=== PATIENT | male | born 1960 | race Caucasian/White ===

== ENCOUNTER 2021-03-05 08:57 | Emergency (ER) | payer MEDICAID, SELFPAY ==
[2021-03-05] VITALS (28 sets, daily range): BP systolic 134–161; BP diastolic 87–106; PULSE 89–105; RESP 11–23; TEMP 37.2; O2SAT 93–100
--- NOTE | ~2021-03-05 | CT_ITS ---
EXAMINATION: CT abdomen pelvis wo/w con DATE: 03/05/2021 11:29 INDICATION: Left kidney masses. TECHNIQUE: Computed tomography (CT) of the abdomen and pelvis was performed without and with 100 mL O mnipaque 350 intravenous contrast. Automated exposure control and iterative reconstruction technique were employed. The dose-length product was 1631.10 mGy-cm. COMPARISON: Chest CT 03/05/2021 FINDINGS: The visualized portions of the lung bases demonstrate mild atelectasis. No pleural effusion . The heart size is normal. No pericardial effusion. There is diffuse hepatic steatosis. The gallblad corey, spleen, pancreas, and adrenal glands are normal. There are cysts in the kidneys measuring up to 17 mm on the left. The ureters are normal. There is prominent fat in the inguinal canals that may be small hernias. There is diverticulosis of the colon without evidence of diverticulitis. There are no dilated loops of bowel. The appendix is normal. There are no pathologically enlarged lymph nodes. The re is no free intraperitoneal fluid. There is moderate lumbar spondylosis. IMPRESSION: 1. Benign cysts in the kidneys. 2. Diffuse hepatic steatosis. Reviewed, dictated and finalized at location A.
--- NOTE | ~2021-03-05 | CT_ITS ---
EXAMINATION: CTA chest PE protocol DATE: 03/05/2021 10:19 INDICATION: Shortness of breath. Chest pain. TECHNIQUE: Computed tomography angiography (CTA) of the chest was performed with 100 mL Omnipaque-350 intravenous contrast timed to evaluate the pulmonary arteries. Coronal maximum intensity projection 3D-reconstructions were created by the technologist. Automated exposure control and iterative reconst ruction technique were employed. The dose-length product was 765.34 mGy-cm. COMPARISON: Chest 2 views 03/05/2021 FINDINGS: There is mild emphysema. There is mild scarring at the lung apices. There is mild atelectas is bilaterally. There is mild scarring in paraspinal right lower lobe. No pleural effusion. The heart size is normal. No pericardial effusion. There is no pulmonary embolus. There is diffuse hepatic akash atosis. There are 2 masses in left kidney measuring soft tissue attenuation measuring up to 14 mm. Th ere is a 5 mm cyst in right kidney. There are bridging endplate osteophytes at multiple levels in the spine, consistent with diffuse idiopathic skeletal hyperostosis (DISH). IMPRESSION: 1. No pulmonary embolus. Sensitivity is moderately decreased by motion artifact. 2. Mild emphysema. 3. Two masses in left kidney measuring up to 14 mm, which may be hemorrhagic cysts or less likely vahe plasms. Abdomen CT without and with contrast is recommended. 4. Diffuse hepatic steatosis. Reviewed, dictated and finalized at location A. IMPRESSION: 1. No pulmonary embolus. Sensitivity is moderately decreased by motion artifact . 2. Mild emphysema. 3. Two masses in left kidney measuring up to 14 mm, which may be hemorrhagic cy sts or less likely neoplasms. Abdomen CT without and with contrast is recommend ed. 4. Diffuse hepatic steatosis.
--- NOTE | ~2021-03-05 | XR_ITS ---
XR chest 2V 03/05/2021 09:27 Indication: Chest pain Procedure: 2 view chest Comparison: No prior studies for comparison. Findings: Heart size normal. There is atherosclerosis of the aorta. There is a right lower paratrache al nodule measuring 1.8 cm which may represent a prominent azygos vein or lymph node. Consider correl ation with contrast-enhanced CT. No focal pneumonia, edema, pleural effusion or pneumothorax. No acut e osseous abnormality. Impression: 1: Right lower paratracheal nodule measuring 1.8 cm which may represent a prominent azygos vein or ly mph node. Consider correlation with contrast-enhanced CT. Reviewed, dictated and finalized at location B. Impression: 1: Right lower paratracheal nodule measuring 1.8 cm which may represent a promi nent azygos vein or lymph node. Consider correlation with contrast-enhanced CT.
--- NOTE | 2021-03-05 09:12 | ECG_ITS ---
Measurements Intervals [place] Rate: 104 P: 52 MI: 143 QRS: -31 QRSD: 97 T: 69 QT: 341 QTc: 450 Interpretive Statements SINUS TACHYCARDIA LEFT AXIS DEVIATION INCOMPLETE RIGHT BUNDLE BRANCH BLOCK CANNOT RULE OUT SEPTAL INFARCT, AGE INDETERMINATE BORDERLINE ST-T WAVE ABNORMALITY- HIGH LATERAL LEADS BASELINE ARTIFACT- I, II, III, AVR, V1-V6 ABNORMAL ECG Electronically Signed On 03-05-2021 12:07:35 CDT by Sunny العلي D.O.
[2021-03-05] MEDS: ASPIRIN 81 MG CHEWABLE TABLET 324 MG PO (09:31)
[2021-03-05 09:34] LABS: Basophils Absolute Auto 0.1 K/mm3 (0.0-0.1); Basophils Percent Auto 0.4 % (0.2-1.2); Eosinophils Absolute Auto 0.1 K/mm3 (0-0.3); Eosinophils Percent Auto 0.4 % (0-4.4); Hematocrit 43.6 % (42.0-52.0); Hemoglobin 15.4 g/dL (14.0-18.0); Immature Granulocyte Percent A 0.6 % (0-0.5); Lymphocytes Percent Auto 7.5 % (18.3-44.2); Mean Corpuscular HGB Conc 35.3 g/dl (32-36); Mean Corpuscular Hemoglobin 35.9 pg (26-34); Mean Corpuscular Volume 101.6 fl (80-100); Mean Platelet Volume 9.3 fl (7.4-10.4); Monocytes Absolute Auto 1.2 K/mm3 (0.1-0.6); Monocytes Percent Auto 7.7 % (2.6-8.5); Neutrophils Absolute Auto 13.4 K/mm3 (1.3-6.7); Neutrophils Percent Auto 83.4 % (45.5-73.1); Platelet Count Result 257 k/mm3 (150-375); Red Blood Count 4.29 M/mm3 (4.6-6.20); Red Cell Distribution Width 11.9 % (11.5-14.5)
[2021-03-05 09:40] LABS: INR 0.9; Partial Thromboplastin Time 25.8 SECONDS (22.3-36.8); Prothrombin Time 11.8 Seconds (11.1-14.7)
[2021-03-05 09:48] LABS: Anion Gap 12 mmol/L (8-16); Blood Urea Nitrogen 14 mg/dL (9-20); Calcium 9.5 mg/dL (8.4-10.2); Carbon Dioxide 22 mmol/L (22-30); Chloride 103 mmol/L (98-107); Estimated CRCL calculation 88 ml/min; Estimated Glomerular Filt Rate > 60; Glucose 133 mg/dL (65-110); Potassium 3.5 mmol/L (3.4-5.0); Sodium 137 mmol/L (137-145)
[2021-03-05 09:58] LABS: Troponin I < 0.012 ng/mL (0.000-0.034)
--- NOTE | 2021-03-05 11:08 | PC.NURSE ---
Called lab requesting add on of D-Dimer
--- NOTE | 2021-03-05 11:26 | PC.NURSE ---
Pt off floor in radiology
[2021-03-05 12:06] LABS: Add Urine Microscopic? YES; Appearance Urine Clear (Clear); Bilirubin Urine Negative (Negative); Blood Urine Negative (Negative); Color Urine Straw (Yellow); Glucose Urine UA Negative (Negative); Ketones Urine Trace mg/dL (Negative); Leukocyte Esterase Ur Trace LEU/UL (Negative); Nitrate Urine Negative (Negative); Protein Urine Negative (Negative); RBC Urine 0-2 /hpf (0-2); Squamous Epithelial Cell Urine Rare /hpf (Few); Urobilinogen Urine Negative mg/dL (<2.0); WBC Urine 0-3 /hpf
[2021-03-05 12:37] LABS: Specific Grav Ur 1.032 (1.001-1.035)
[2021-03-05 13:00] LABS: D Dimer 0.31 ug/mL (<0.48)
[2021-03-05 13:07] LABS: Troponin I < 0.012 ng/mL (0.000-0.034)
[2021-03-05] MEDS: KETOROLAC 15 MG/ML VIAL (*BKC) IV PUSH (13:38)
--- NOTE | 2021-03-05 15:43 | ED.CHESTPAIN ---
HPI - Chest Pain General Chief Complaint: Chest Pain <Alec Arroyo PA-C - Last Filed: 03/05/21 15:48> Stated Complaint: chest pain <Alec Arroyo PA-C - Last Filed: 03/05/21 15:48> Time Seen by Provider: 03/05/21 09:13 <Alec Arroyo PA-C - Last Filed: 03/05/21 15:48> Source: patient <ARTURO Sanchez Last Filed: 03/05/21 15:48> Mode of arrival: ambulatory <ARTURO Sanchez Last Filed: 03/05/21 15:48> Limitations: no limitations <ARTURO Sanchez Last Filed: 03/05/21 15:48> History of Present Illness HPI narrative: Patient presents with chief complaint of substernal chest pain that radiated to his back that began this morning at around 4 AM after waking to urinate. Patient states that he be a walk his dog this morning and breathing in the cold air. Patient states he has not had any fevers, chills, cough, shortness of breath. He did increase his intake to deep breath pain. Patient reports that he smokes marijuana. He denies any other exertional drug usage. Patient denies history of heart attack or stroke. He denies any neurologic deficits. Patient has not taken anything for alleviate his symptoms. He also reports that he ate pizza for dinner last night. <Alec Arroyo PA-C - Last Filed: 03/05/21 15:48> Related Data Allergies/Adverse Reactions: Allergies Allergy/AdvReac Type Severity Reaction Status Date / Time Penicillins Allergy Unknown Unknown Verified 03/05/21 09:11 <Alec Arroyo PA-C - Last Filed: 03/05/21 15:48> Review of Systems Review of Systems: CONSTITUTIONAL: Denies fever, chills, or sweats. EYES: Denies visual changes, redness, or discharge. ENT: Denies rhinorrhea, congestion, sore throat, or otalgia. CARDIOVASCULAR: Reports chest pain, denies palpitations, or edema. RESPIRATORY: Denies cough or dyspnea. GASTROINTESTINAL: Denies abdominal pain, nausea, vomiting, or diarrhea. GENITOURINARY: Denies dysuria or hematuria. SKIN: Denies rash or itching. MUSCULOSKELETAL: Denies back pain, joint pain, or myalgia. NEUROLOGIC: Denies headache, numbness, dizziness, or weakness. PSYCHIATRIC: Denies anxiety or depression. <Alec Arroyo PA-C - Last Filed: 03/05/21 15:48> PMFSH Past Medical History Medical History: Medical History Alcohol abuse Body mass index 29.0-29.9, adult Essential (primary) hypertension Rash and nonspecific skin eruption Umbilical hernia without obstruction and without gangrene <Alec Arroyo PA-C - Last Filed: 03/05/21 15:48> Surgical History Surgical History: Surgical History History of placement of ear tubes History of tonsillectomy and adenoidectomy <Alec Arroyo PA-C - Last Filed: 03/05/21 15:48> Family History Family History: Family History Other Family history of cardiovascular disease Hypertension <Alec Arroyo PA-C - Last Filed: 03/05/21 15:48> Social History Social History: Social History Smoking status: Former smoker (Quit 19 years ago) Second hand tobacco smoke exposure: No Smoking end date: 05/16/03 Alcohol intake: current Alcohol use details: consumes 12 beers daily Substance use: never Substance use type: does not use Gender identity (if verbalized by the patient): Male <Alec Arroyo PA-C - Last Filed: 03/05/21 15:48> Exam Narrative: GENERAL: Well-appearing, well-nourished, and in no acute distress. Nontoxic in appearance. HEAD: Normocephalic, atraumatic. EYES: PERRLA and EOMI. NECK: Supple. No adenopathy or masses. Range of motion intact CHEST: Nontender to palpation. Clear to auscultation. No respiratory distress. No wheezes rales or rhonchi HEART: Regular rate and rhythm. No murmur heard. Normal pe
== END 2021-03-05 14:56 | disposition home or self-care (01) ==
PROVIDERS: Physician Assistant; Emergency Provider Emergency Medicine
DX: R07.2 Precordial pain (principal); I10 Essential (primary) hypertension; Z87.891 Personal history of nicotine dependence; N28.1 Cyst of kidney, acquired; N28.89 Other specified disorders of kidney and ureter; K76.0 Fatty (change of) liver, not elsewhere classified; J43.9 Emphysema, unspecified; R00.0 Tachycardia, unspecified; I45.10 Unspecified right bundle-branch block; R94.31 Abnormal electrocardiogram [ECG] [EKG]
CPT/HCPCS: 36415; 71046; 71275; 74178; 80048; 81001; 84484; 85025; 85380; 85610; 85730; 93005; 96374; 99284; A9270; J1885; Q9967

== ENCOUNTER 2023-02-22 00:27 | Day surgery (SDC) | payer OTHER, SELFPAY ==
[2023-02-09 14:19] VITALS: BMI 31.6
[2023-02-22 08:10] VITALS: BP 125/90; PULSE 100; RESP 17; TEMP 36.5; O2SAT 98; BMI 29.1
[2023-02-22] MEDS: LACTATED RINGERS 1,000 ML 150 ML IV CONT (08:18)
--- NOTE | 2023-02-22 09:02 | WPDANESEPPF ---
Anes - Initial Pre Proc Eval Procedure: Operation Date: 02/22/23 09:30 Proposed Procedures p Colonoscopy - Juan Magallon MD Date/Time: 02/22/23 09:02 Surgeon: Juan Magallon MD Pre Op Diagnosis: other fecal abnormalities Patient Data Age: 62 Gender: M Height: 1.78 m Weight: 92.1 kg Last Vital Signs Temp 97.7 F 02/22/23 08:10 Pulse 100 02/22/23 08:10 Resp 17 02/22/23 08:10 BP 125/90 02/22/23 08:10 Pulse Ox 98 02/22/23 08:10 O2 Del Method Room Air 02/22/23 08:10 Allergies Allergy/AdvReac Type Severity Reaction Status Date / Time Penicillins Allergy Unknown Unknown Verified 02/22/23 08:08 Home Medications Medication Instructions Recorded Confirmed Type loratadine 10 mg capsule 10 mg PO DAILY 03/23/21 02/22/23 History albuterol sulfate 90 mcg/actuation 1 inh inhalation Q4H PRN shortness 04/26/22 02/22/23 Rx aerosol inhaler of breath or wheezing #8.5 grams hydrochlorothiazide 12.5 mg tablet 12.5 mg PO DAILY #90 tabs 06/21/22 02/22/23 Rx lisinopril 10 mg tablet 10 mg PO DAILY #90 tabs 06/21/22 02/22/23 Rx sertraline 100 mg tablet 100 mg PO DAILY #90 tabs 06/21/22 02/22/23 Rx Patient hx anesthesia problems: none Family hx anesthesia problems: none Results Review: All pre-operative results and documents have been reviewed as part of the pre-operative evaluation. [facility] Past Medical History Medical History Alcohol abuse Body mass index 29.0-29.9, adult Essential (primary) hypertension Rash and nonspecific skin eruption Umbilical hernia without obstruction and without gangrene Surgical History Surgical History History of placement of ear tubes History of tonsillectomy and adenoidectomy Family History Family History Other Family history of cardiovascular disease Hypertension Social History Social History (Updated 12/21/22 @ 11:19 by Dahlia Flores PA-C) Smoking packs per day: 2 Smoking cigarettes per day: 40.0 Years smoked: 28 Smoking pack-years: 56.00 Smoking status: Former smoker Tobacco type: cigarettes and cigars Second hand tobacco smoke exposure: No Smoking end date: 05/16/03 Additional smoking assessment comments: STILL SMOKES OCCASIONAL CIGAR Alcohol intake: current Drinks per week: 45 Alcohol use details: BEER, VODKA Substance use: current Substance use type: marijuana Other substance usage details: DAILY Lack of Transportation: No Lack of Food: Never True Current Housing: I Have Housing Concerned About Future Housing: No Difficulty Paying Gas/Electric Bills: No Difficulty Paying for Meds: No Currently Unemployed: No Education: High School Diploma/GED Difficulty w/ Childcare or Family Care: No Living arrangements: alone Gender identity (if verbalized by the patient): Male Spiritual care concerns: No Agree to blood products: Yes Anes - Eval Final PreProcedure Day of Procedure 02/22/23 09:02 Patient weight: obese Heart: regular rate and rhythm Lungs: clear to auscultation Airway: Mallampati scale class II Neurological: alert and oriented Last oral intake: >/= 8 hours ASA classification: III Emergent: no Anesthetic plan: proceed Anesthesia type and monitoring: general GIVS and standard monitoring Results Review: All pre-operative results and documents have been reviewed as part of the pre-operative evaluation. Informed Consent: The patient's anesthetic plan and its attendant risks and benefits were discussed with the patient/family/POA. Questions were solicited and answers provided to the satisfaction of the patient/family/POA.
--- NOTE | 2023-02-22 09:03 | PM.HPGS ---
History of Present Illness History of Present Illness Consent: Risks, benefits, and alternatives have been discussed and questions answered. Patient agrees to proceed with procedure. Chief complaint: other fecal abnormalities Narrative: Saud Mccollum is a 62 year old male here for first colonoscopy, had + cologuard Review of Systems Constitutional: Constitutional: Denies headache(s) and Denies weakness Eyes: Eyes: Denies blurry vision ENT: Reports Normal hearing present, Denies headache(s) and Denies neck pain Cardiovascular: Cardiovascular: Denies chest pain and Denies dyspnea Respiratory: Respiratory: Denies dyspnea Gastrointestinal: Gastrointestinal: Reports no additional gastrointestinal complaints Genitourinary: Genitourinary: Denies dysuria Musculoskeletal: Musculoskeletal: Denies neck pain Integumentary/Breasts: Skin/Breast: Denies dry skin Neurologic: Reports Normal hearing present, Denies headache(s) and Denies weakness Psychiatric: Psychiatric: Denies anxiety Endocrine: Endocrine: Denies change in body appearance Hematologic/Lymphatic: Hematologic/Lymphatic: Denies easy bleeding Allergic/Immunologic: Allergic/Immunologic: Denies urticaria PMFSH Past Medical History Medical History (Updated 02/22/23 @ 09:04 by Juan Magallon MD) Alcohol abuse Body mass index 29.0-29.9, adult Essential (primary) hypertension Positive colorectal cancer screening using Cologuard test Rash and nonspecific skin eruption Umbilical hernia without obstruction and without gangrene Surgical History Surgical History History of placement of ear tubes History of tonsillectomy and adenoidectomy Family History Family History Other Family history of cardiovascular disease Hypertension Social History Social History (Updated 12/21/22 @ 11:19 by Dahlia Flores PA-C) Smoking packs per day: 2 Smoking cigarettes per day: 40.0 Years smoked: 28 Smoking pack-years: 56.00 Smoking status: Former smoker Tobacco type: cigarettes and cigars Second hand tobacco smoke exposure: No Smoking end date: 05/16/03 Additional smoking assessment comments: STILL SMOKES OCCASIONAL CIGAR Alcohol intake: current Drinks per week: 45 Alcohol use details: BEER, VODKA Substance use: current Substance use type: marijuana Other substance usage details: DAILY Lack of Transportation: No Lack of Food: Never True Current Housing: I Have Housing Concerned About Future Housing: No Difficulty Paying Gas/Electric Bills: No Difficulty Paying for Meds: No Currently Unemployed: No Education: High School Diploma/GED Difficulty w/ Childcare or Family Care: No Living arrangements: alone Gender identity (if verbalized by the patient): Male Spiritual care concerns: No Agree to blood products: Yes Meds Home Medications and Allergies Home Medications Medication Instructions Recorded Confirmed Type loratadine 10 mg capsule 10 mg PO DAILY 03/23/21 02/22/23 History albuterol sulfate 90 mcg/actuation 1 inh inhalation Q4H PRN shortness 04/26/22 02/22/23 Rx aerosol inhaler of breath or wheezing #8.5 grams hydrochlorothiazide 12.5 mg tablet 12.5 mg PO DAILY #90 tabs 06/21/22 02/22/23 Rx lisinopril 10 mg tablet 10 mg PO DAILY #90 tabs 06/21/22 02/22/23 Rx sertraline 100 mg tablet 100 mg PO DAILY #90 tabs 06/21/22 02/22/23 Rx Allergies Allergy/AdvReac Type Severity Reaction Status Date / Time Penicillins Allergy Unknown Unknown Verified 02/22/23 08:08 Vital Signs Vital Signs - 24 hr 02/22/23 08:10 Temperature 97.7 F Pulse Rate 100 Respiratory Rate 17 Blood Pressure 125/90 Pulse Oximetry 98 Oxygen Delivery Room Air Exam Const: General: comfortable and no acute distress HENMT: Face/Nose/Sinus: Normal nares present Eyes: General: appeara
[2023-02-22 09:25] VITALS: BP 100/72; PULSE 90; RESP 25; O2SAT 98
[2023-02-22 09:35] VITALS: BP 107/75; PULSE 89; RESP 22; O2SAT 98
[2023-02-22 09:45] VITALS: BP 125/82; PULSE 86; RESP 20; O2SAT 98
== END 2023-02-22 10:06 | disposition home or self-care (01) ==
PROVIDERS: PCP Family Medicine; Visit Provider Internal Medicine Gastroenterology
PROC: 0DJD8ZZ Inspection of Lower Intestinal Tract, Via Natural or Artificial Opening Endoscopic (ICD-10-PCS; CPT 45378; principal; 2023-02-22 09:30)
DX: R19.5 Other fecal abnormalities (principal); K63.5 Polyp of colon; D12.2 Benign neoplasm of ascending colon; D17.5 Benign lipomatous neoplasm of intra-abdominal organs; K57.30 Diverticulosis of large intestine without perforation or abscess without bleeding; I10 Essential (primary) hypertension; Z87.891 Personal history of nicotine dependence; F12.90 Cannabis use, unspecified, uncomplicated; Z79.51 Long term (current) use of inhaled steroids; E66.9 Obesity, unspecified; Z68.29 Body mass index [BMI] 29.0-29.9, adult
CPT/HCPCS: 45380; 45385; 88305; J2704; J7120